=== PATIENT | male | born 1985 | race Caucasian/White ===

== ENCOUNTER → 2021-01-06 13:10 | Outpatient (CLI) | payer OTHER, SELFPAY ==
--- NOTE | ~2021-01-06 | MR_ITS ---
EXAMINATION: MR brain/brain stem wo/w con DATE: 01/06/2021 14:13 INDICATION: Multiple sclerosis. TECHNIQUE: Magnetic resonance imaging (MRI) of the brain and brainstem was performed without and with 18 mL MultiHance intravenous contrast. Sequences included sagittal and axial T1-weighted FLAIR, axia l T1-weighted FSE, axial diffusion-weighted FS EPI, sagittal T2-weighted FLAIR, axial T2*-weighted GR E, axial T2-weighted FLAIR Propeller, and axial T2-weighted Propeller. Postcontrast sequences include d axial, coronal, and sagittal T1-weighted FSE. Apparent diffusion coefficient (ADC) maps were create d. COMPARISON: None. FINDINGS: There are greater than 40 total lesions of increased T2-weighted signal intensity in the br ain. Of these lesions, many are periventricular, a few are juxtacortical, and 2 are infratentorial. N one of the lesions enhance. There is no acute ischemic infarct or intracranial hemorrhage. The ventri cles are normal in size. The mastoid air cells are normal. The paranasal sinuses are clear. The orbit s are normal. IMPRESSION: 1. Multifocal white matter disease, consistent with multiple sclerosis. Reviewed, dictated and finalized at location A.
[2021-01-06 13:43] LABS: Estimated Glomerular Filt Rate > 60
== END ==
DX: G35 Multiple sclerosis (principal); R90.82 White matter disease, unspecified
CPT/HCPCS: 70553; A9577